=== PATIENT | male | born 1940 | race Caucasian/White ===

== ENCOUNTER → 2016-10-24 | Outpatient (CLI) | payer MEDICARE, BC | END | disposition home or self-care (01) | LOC: CFH 07:40 | PROVIDERS: ATTEND Internal Medicine Cardiovascular Disease | DX: I21.3 ST elevation (STEMI) myocardial infarction of unspecified site (principal); Z98.61 Coronary angioplasty status | CPT/HCPCS: 78452; 93017; A9502 ==

== ENCOUNTER → 2017-10-24 | Outpatient (CLI) | payer MEDICARE, BC | END | disposition home or self-care (01) | LOC: CFH 08:38 | PROVIDERS: ATTEND Internal Medicine Cardiovascular Disease | DX: I25.10 Atherosclerotic heart disease of native coronary artery without angina pectoris (principal); I25.5 Ischemic cardiomyopathy; I21.19 ST elevation (STEMI) myocardial infarction involving other coronary artery of inferior wall; Z95.1 Presence of aortocoronary bypass graft | CPT/HCPCS: 78452; 93017; A9502 ==

== ENCOUNTER 2018-10-22 08:34 | Outpatient (CLI) | payer MEDICARE, BC | END 2018-10-22 23:59 | disposition home or self-care (01) | LOC: CFH 08:34 | PROVIDERS: ATTEND Internal Medicine Cardiovascular Disease | DX: I10 Essential (primary) hypertension (principal); Z95.1 Presence of aortocoronary bypass graft; I25.10 Atherosclerotic heart disease of native coronary artery without angina pectoris | CPT/HCPCS: 78452; 93017; A9502 ==

== ENCOUNTER → 2019-10-19 | Outpatient (CLI) | payer MEDICARE, BC ==
[~2019-10-19] MED LIST: REGADENOSON 0.4 MG/5 ML SYRINGE ONE
== END | disposition home or self-care (01) ==
LOC: CFH 07:34
PROVIDERS: ATTEND Internal Medicine Cardiovascular Disease
DX: I21.29 ST elevation (STEMI) myocardial infarction involving other sites (principal); I10 Essential (primary) hypertension; Z95.1 Presence of aortocoronary bypass graft
CPT/HCPCS: 78452; 93017; A9502; J2785